=== PATIENT | female | born 1965 | race African-American/Black ===

== ENCOUNTER 2017-09-03 09:45 | Emergency (ER) | payer SELFPAY ==
[~2017-09-03] VITALS: Ht 167.6 cm; Wt 68.0 kg
[2017-09-03] MEDS ORDERED: IBUPROFEN 800MG TABLET PO ONE (11:00)
[2017-09-03 11:23] VITALS: BP 130/82
== END 2017-09-03 12:27 | disposition home or self-care (01) ==
LOC: ER 09:45
DX: M25.561 Pain in right knee (principal); R03.0 Elevated blood-pressure reading, without diagnosis of hypertension
CPT/HCPCS: 73562; 99284

== ENCOUNTER → 2018-09-16 | Outpatient (CLI) | payer OTHER | END | disposition home or self-care (01) | LOC: MRI 10:41 | PROVIDERS: ATTEND Family Medicine | DX: S46.001A Unspecified injury of muscle(s) and tendon(s) of the rotator cuff of right shoulder, initial encounter (principal); M75.91 Shoulder lesion, unspecified, right shoulder; X58.XXXA Exposure to other specified factors, initial encounter; Y93.89 Activity, other specified; Y92.89 Other specified places as the place of occurrence of the external cause; Y99.8 Other external cause status | CPT/HCPCS: 73221 ==

== ENCOUNTER → 2018-10-06 | Outpatient (CLI) | payer BC ==
[2018-10-06 09:14] LABS: BASOPHILS % 1.2 % (0.0-2.0); EOSINOPHILS % 5.3 % (0.0-5.0); HEMATOCRIT. 38.7 % (36.0-48.0); HEMOGLOBIN. 13.4 g/dL (12.0-16.0); LYMPHOCYTES % 42.2 % (20.0-50.0); MEAN CORPUSCULAR HEMOGLOBIN 30.6 pg (28.0-32.0); MEAN CORPUSCULAR VOLUME 88.6 fL (81.0-99.0); MEAN PLATELET VOLUME 9.6 fl (7.4-10.4); MONOCYTES % 10.7 % (2.0-8.0); NEUTROPHILS % 40.6 % (40.0-76.0); PLATELET 176 x1000/uL (130-400); RED BLOOD CELL COUNT 4.37 mill/uL (4.2-5.4); RED CELL DISTRIBUTION WIDTH 13.8 % (11.6-14.6)
[2018-10-06 09:22] LABS: CHLORIDE 110 mEq/L (98-107)
[2018-10-06 09:30] LABS: LDL CHOLESTEROL 146 mg/dL (5-100)
[2018-10-06 09:31] LABS: HDL CHOLESTEROL 93 mg/dL (40-59); T4 FREE 0.97 ng/dL (0.76-1.46)
[2018-10-07 09:11] LABS: RF PROFILE < 10.0 IU/mL (0.0-13.9); VITAMIN D 25-OH 33.6 ng/mL (30.0-100.0)
[2018-10-07 15:11] LABS: ANTI-NUCLEAR ANTIBODIES DIRECT Negative (Negative)
[2018-10-08 19:14] LABS: CCP IgG/IgA PROFILE 19 units (0-19)
== END | disposition home or self-care (01) ==
LOC: RAD 08:38
PROVIDERS: ATTEND Internal Medicine Endocrinology, Diabetes & Metabolism
DX: R73.9 Hyperglycemia, unspecified (principal); E04.1 Nontoxic single thyroid nodule; M54.2 Cervicalgia; R03.0 Elevated blood-pressure reading, without diagnosis of hypertension
CPT/HCPCS: 36415; 80061; 82306; 83036; 84439; 84443; 85651; 86038; 86200; 86431

== ENCOUNTER → 2018-10-08 | Outpatient (CLI) | payer BC | END | disposition home or self-care (01) | LOC: MAMMO 13:23 | PROVIDERS: ATTEND Internal Medicine Endocrinology, Diabetes & Metabolism | DX: M50.321 Other cervical disc degeneration at C4-C5 level (principal); M48.02 Spinal stenosis, cervical region; Z87.891 Personal history of nicotine dependence | CPT/HCPCS: 72040 ==

== ENCOUNTER → 2018-10-09 | Outpatient (CLI) | payer BC | END | disposition home or self-care (01) | LOC: MAMMO 12:49 | PROVIDERS: ATTEND Internal Medicine Endocrinology, Diabetes & Metabolism | DX: Z12.31 Encounter for screening mammogram for malignant neoplasm of breast (principal) | CPT/HCPCS: 77067 ==

== ENCOUNTER → 2019-02-16 | Outpatient (CLI) | payer BC | END | disposition home or self-care (01) | LOC: US 10:32 | PROVIDERS: ATTEND Internal Medicine Endocrinology, Diabetes & Metabolism | DX: M41.86 Other forms of scoliosis, lumbar region (principal); M43.16 Spondylolisthesis, lumbar region; M48.061 Spinal stenosis, lumbar region without neurogenic claudication; M47.817 Spondylosis without myelopathy or radiculopathy, lumbosacral region; M51.26 Other intervertebral disc displacement, lumbar region; M85.48 Solitary bone cyst, other site; E04.2 Nontoxic multinodular goiter | CPT/HCPCS: 72110; 72148; 72170; 76536 ==

== ENCOUNTER → 2019-08-30 | Outpatient (CLI) | payer BC ==
[2019-08-30 09:43] LABS: BASOPHILS % 0.8 % (0.0-2.0); EOSINOPHILS % 3.2 % (0.0-5.0); HEMATOCRIT. 40.1 % (36.0-48.0); HEMOGLOBIN. 13.6 g/dL (12.0-16.0); LYMPHOCYTES % 40.5 % (20.0-50.0); MEAN CORPUSCULAR HEMOGLOBIN 30.3 pg (28.0-32.0); MEAN CORPUSCULAR VOLUME 89.5 fL (81.0-99.0); MEAN PLATELET VOLUME 10.1 fl (7.4-10.4); MONOCYTES % 9.3 % (2.0-8.0); NEUTROPHILS % 46.2 % (40.0-76.0); PLATELET 164 x1000/uL (130-400); RED BLOOD CELL COUNT 4.48 mill/uL (4.2-5.4); RED CELL DISTRIBUTION WIDTH 13.6 % (11.6-14.6)
[2019-08-30 09:50] LABS: CHLORIDE 108 mEq/L (98-107)
[2019-08-30 09:57] LABS: C REACTIVE PROTEIN QUANT 0.6 mg/L (0.0-3.0)
[2019-08-30 09:58] LABS: HDL CHOLESTEROL 87 mg/dL (40-59); LDL CHOLESTEROL 168 mg/dL (5-100)
[2019-08-30 10:00] LABS: T4 FREE 1.02 ng/dL (0.76-1.46)
[2019-08-30 10:13] LABS: FOLIC ACID (FOLATE) SERUM 10.7 ng/mL (>5.38)
[2019-08-31 09:09] LABS: ANTI-NUCLEAR ANTIBODIES DIRECT Negative (Negative); THYROID PEROXIDASE ANTIBODY < 9 IU/mL (0-34)
[2019-09-03 10:11] LABS: METHYLMALONIC ACID 61 nmol/L (0-378)
== END | disposition home or self-care (01) ==
LOC: LAB 09:08
PROVIDERS: ATTEND Internal Medicine Endocrinology, Diabetes & Metabolism
DX: E04.1 Nontoxic single thyroid nodule (principal); E78.00 Pure hypercholesterolemia, unspecified; M54.9 Dorsalgia, unspecified
CPT/HCPCS: 36415; 80053; 80061; 82607; 82746; 83036; 83921; 84439; 84443; 85025; 85651; 86038; 86140; 86376; 86800